=== PATIENT | male | born 1940 | race Caucasian/White ===

== ENCOUNTER 2018-07-04 05:47 | Day surgery (SDC) | payer OTHER ==
[~2018-07-04] VITALS: Ht 175.3 cm; Wt 74.8 kg
[~2018-07-04 05:47] MED LIST: AMLO5TAB88 PO; ASPI-1159 PO; CYAN500T2 PO; FOLI-43 PO; PREG50CA PO; VITA400C73 PO
[2018-07-04] MEDS ORDERED: LACTATED RINGERS 1,000 ML IV SCH (06:00)
[2018-07-04] MEDS ORDERED: SKIN ADHESIVE 0.7 GM EA TOP ONE (06:14)
[2018-07-04] MEDS ORDERED: BUPIVACAINE HCL 0.5% (5MG/ML) 50ML ONE (06:15)
[2018-07-04] MEDS ORDERED: NEOSTIGMINE METHYLSULFATE 1MG/ML 10 ML VIAL ONE (07:11)
[2018-07-04] MEDS ORDERED: PROPOFOL 200MG/20ML VIAL IV ONE (07:11)
[2018-07-04] MEDS ORDERED: GLYCOPYRROLATE 0.2 MG/ML 2ML VIAL ONE (07:11)
[2018-07-04] MEDS ORDERED: FENTANYL CITRATE/PF 50MCG/ML 2ML VIAL ONE ×2 (07:11→07:38)
[2018-07-04] MEDS ORDERED: ROCURONIUM BROMIDE 10MG/ML VIAL 5ML IV ONE (07:11)
[2018-07-04] MEDS ORDERED: MIDAZOLAM HCL 2 MG/2 ML VIAL ONE (07:11)
[2018-07-04] MEDS ORDERED: LIDOCAINE HCL/PF 1% 10 MG/ML 5ML VIAL ONE (07:11)
[2018-07-04] MEDS ORDERED: SUCCINYLCHOLINE CHLORIDE 200MG/10ML IV ONE (07:12)
[2018-07-04] MEDS ORDERED: ONDANSETRON HCL 4MG/2ML INJ ONE (07:12)
[2018-07-04] MEDS ORDERED: SODIUM CHLORIDE 0.9% 10ML VIAL ONE (07:12)
[2018-07-04] MEDS ORDERED: CEFAZOLIN SODIUM 1000MG/VIAL ONE (07:12)
[2018-07-04] MEDS ORDERED: METOCLOPRAMIDE HCL 10MG/2ML VIAL ONE (07:12)
[2018-07-04] MEDS ORDERED: EPHEDRINE SULFATE 50MG/ML VIAL ONE (07:12)
[2018-07-04] MEDS ORDERED: PHENYLEPHRINE HCL 10 MG/ML 1ML (IV VIAL) IV ONE (07:12)
[2018-07-04] MEDS ORDERED: SODIUM CHLORIDE 0.9% 1,000 ML IV ONE (08:38)
[2018-07-04] MEDS ORDERED: ONDANSETRON HCL 4MG/2ML INJ IV PRN (08:45)
[2018-07-04] MEDS ORDERED: MORPHINE SULFATE 4 MG/ML CPJ (NOT FOR IM USE) IV PRN (08:45)
[2018-07-04] MEDS ORDERED: MEPERIDINE HCL/PF 25MG/ML CPJ IV PRN ×2 (08:45)
[2018-07-04] MEDS: HYDROMORPHONE HCL/PF 2MG/ML CPJ IV PRN ×5 (09:32→10:57)
[2018-07-04] MEDS ORDERED: HYDROCODONE/ACETAMINOPHEN 5/325MG TABLET PO PRN (10:15)
[2018-07-04 11:24] VITALS: BP 130/80
== END 2018-07-04 12:30 | disposition home or self-care (01) ==
LOC: OR 05:47
PROVIDERS: ATTEND Surgery
DX: K42.9 Umbilical hernia without obstruction or gangrene (principal); I10 Essential (primary) hypertension
CPT/HCPCS: 49652; C1781; G0168; J0330; J0690; J1170; J2175; J2250; J2370; J2405; J2704; J2710; J2765; J3010; J3490

== ENCOUNTER 2018-10-04 11:33 | Inpatient (IN) | payer OTHER ==
[~2018-10-04] VITALS: Ht 170.2 cm; Wt 71.3 kg
[2018-10-04] MEDS ORDERED: FAMOTIDINE 20MG/2ML VIAL IV STA (12:16)
[2018-10-04] MEDS ORDERED: SODIUM CHLORIDE 0.9% 1,000 ML IV ONE (12:16)
[2018-10-04] MEDS ORDERED: DIPHENHYDRAMINE 50MG/ML VIAL IV ONE (12:30)
[2018-10-04 12:37] LABS: CHLORIDE 104 mEq/L (98-107)
[2018-10-04 12:40] LABS: HEMATOCRIT. 40.9 % (42.0-52.0); HEMOGLOBIN. 13.5 g/dL (14.0-18.0); MEAN CORPUSCULAR HEMOGLOBIN 28.7 pg (28.0-32.0); MEAN CORPUSCULAR VOLUME 86.8 fL (80.0-94.0); MEAN PLATELET VOLUME 8.1 fl (7.4-10.4); PLATELET 225 x1000/uL (130-400); RED BLOOD CELL COUNT 4.71 mill/uL (4.7-6.1); RED CELL DISTRIBUTION WIDTH 14.9 % (11.6-14.6)
[2018-10-04 13:04] LABS: PLATELET ESTIMATE NORMAL
[2018-10-04] MEDS ORDERED: IOHEXOL-300 100 ML BOTTLE ONE (13:57)
[2018-10-04] MEDS ORDERED: CLINDAMYCIN 600 MG in DEXTROSE 5% WATER 50 ML IV ONE (15:15)
[2018-10-04] MEDS ORDERED: HYDROMORPHONE HCL/PF 2MG/ML CPJ IV PRN (16:30)
[2018-10-04] MEDS ORDERED: DOCUSATE SODIUM 100MG CAPSULE PO PRN (16:30)
[2018-10-04] MEDS ORDERED: ONDANSETRON HCL 4MG/2ML INJ IV PRN (16:30)
[2018-10-04] MEDS ORDERED: PIPERACILLIN/TAZ 3.375G PREMIX 50 ML IV SCH (16:30)
[2018-10-04 17:31] LABS: CLARITY URINE CLEAR (CLEAR); COLOR URINE YELLOW (YELLOW); KETONES URINE TRACE (NEGATIVE); LEUKOCYTE ESTERASE URINE NEGATIVE (NEGATIVE); NITRITE URINE NEGATIVE (NEGATIVE); OCCULT BLOOD URINE 1+ (NEGATIVE); PH URINE 7.5 (4.5-8.0); PROTEIN URINE 2+ (NEGATIVE); SPECIFIC GRAVITY URINE 1.079 (1.005-1.030)
[2018-10-04 20:15] VITALS: BP 143/85
[2018-10-04] MEDS: ACETAMINOPHEN 325MG TABLET PO PRN (22:54)
[2018-10-05] VITALS: BP 104/55
[2018-10-05] MEDS: PIPERACILLIN/TAZ 3.375G PREMIX 50 ML IV SCH ×2 (00:48→09:00)
[2018-10-05] MEDS: SODIUM CHLORIDE 0.45% 1,000 ML IV SCH (00:49)
[2018-10-05] MEDS ORDERED: VANCOMYCIN 1 G PREMIX 200 ML IV NR (01:00)
[2018-10-05 04:00] VITALS: BP 126/69
[2018-10-05] MEDS: ACETAMINOPHEN 325MG TABLET PO PRN (05:15)
[2018-10-05 06:19] LABS: HEMATOCRIT. 37.9 % (42.0-52.0); HEMOGLOBIN. 12.5 g/dL (14.0-18.0); MEAN CORPUSCULAR HEMOGLOBIN 28.5 pg (28.0-32.0); MEAN CORPUSCULAR VOLUME 86.7 fL (80.0-94.0); MEAN PLATELET VOLUME 8.6 fl (7.4-10.4); PLATELET 208 x1000/uL (130-400); RED BLOOD CELL COUNT 4.37 mill/uL (4.7-6.1)
[2018-10-05 07:05] LABS: CHLORIDE 107 mEq/L (98-107)
[2018-10-05 07:14] LABS: LDL CHOLESTEROL 44 mg/dL (5-100)
[2018-10-05 07:15] LABS: HDL CHOLESTEROL 28 mg/dL (40-59)
[2018-10-05] MEDS: ENOXAPARIN 40MG/0.4ML SYR SUBCUT SCH (09:01)
[2018-10-05 10:52] LABS: PLATELET ESTIMATE NORMAL
[2018-10-05 12:00] VITALS: BP 147/80
[2018-10-05] MEDS: VANCOMYCIN 750 MG PREMIX 150 ML IV SCH (15:14)
[2018-10-05] MEDS ORDERED: MECLIZINE 25MG TABLET PO PRN (16:15)
[2018-10-05] MEDS ORDERED: CLINDAMYCIN 600 MG in DEXTROSE 5% WATER 50 ML IV SCH (16:15)
[2018-10-05 17:10] LABS: CHLORIDE 105 mEq/L (98-107)
[2018-10-05] MEDS: CEFTRIAXONE 1 G PREMIX 50 ML IV SCH (18:30)
[2018-10-05 20:00] VITALS: BP 133/77
[2018-10-05] MEDS: CLINDAMYCIN 600MG PREMIX 50 ML IV SCH (21:42)
[2018-10-06] VITALS: BP 126/76
[2018-10-06] MEDS: VANCOMYCIN 750 MG PREMIX 150 ML IV SCH ×3 (01:47→21:44)
[2018-10-06] MEDS: SODIUM CHLORIDE 0.45% 1,000 ML IV SCH (01:51)
[2018-10-06 04:00] VITALS: BP 140/75
[2018-10-06] MEDS: CLINDAMYCIN 600MG PREMIX 50 ML IV SCH ×3 (05:32→21:01)
[2018-10-06] MEDS: ACETAMINOPHEN 325MG TABLET PO PRN ×2 (05:39→19:56)
[2018-10-06 06:35] LABS: HEMATOCRIT. 36.7 % (42.0-52.0); HEMOGLOBIN. 12.3 g/dL (14.0-18.0); MEAN CORPUSCULAR HEMOGLOBIN 28.7 pg (28.0-32.0); MEAN CORPUSCULAR VOLUME 85.8 fL (80.0-94.0); MEAN PLATELET VOLUME 8.7 fl (7.4-10.4); PLATELET 217 x1000/uL (130-400); RED BLOOD CELL COUNT 4.27 mill/uL (4.7-6.1); RED CELL DISTRIBUTION WIDTH 15.1 % (11.6-14.6)
[2018-10-06 08:30] VITALS: BP 139/80
[2018-10-06] MEDS: ENOXAPARIN 40MG/0.4ML SYR SUBCUT SCH (08:54)
[2018-10-06 10:39] LABS: PLATELET ESTIMATE NORMAL
[2018-10-06 12:00] VITALS: BP 149/83
[2018-10-06] MEDS ORDERED: DEXTROSE 50% WATER 50ML SYRINGE IV PRN ×2 (13:30)
[2018-10-06] MEDS ORDERED: IPRATROPIUM/ALBUTEROL 0.5-3(2.5)MG/3ML NEB HHN PRN (15:00)
[2018-10-06 16:00] VITALS: BP 156/88
[2018-10-06] MEDS: BLOOD SUGAR DIAGNOSTIC STRIP TEST SCH ×2 (17:32→21:01)
[2018-10-06] MEDS: INSULIN LISPRO 100 UNITS/ML SUBCUT SCH ×2 (17:33→21:00)
[2018-10-06] MEDS: CEFTRIAXONE 1 G PREMIX 50 ML IV SCH (18:19)
[2018-10-06 20:00] VITALS: BP 146/80
[2018-10-07] VITALS (7 sets, daily range): BP systolic 130–159; BP diastolic 76–88
[2018-10-07] MEDS: SODIUM CHLORIDE 0.45% 1,000 ML IV SCH (05:27)
[2018-10-07] MEDS: CLINDAMYCIN 600MG PREMIX 50 ML IV SCH ×3 (05:27→21:26)
[2018-10-07] MEDS: VANCOMYCIN 750 MG PREMIX 150 ML IV SCH (06:06)
[2018-10-07 06:29] LABS: HEMATOCRIT. 35.7 % (42.0-52.0); HEMOGLOBIN. 11.8 g/dL (14.0-18.0); MEAN CORPUSCULAR HEMOGLOBIN 28.4 pg (28.0-32.0); MEAN CORPUSCULAR VOLUME 85.4 fL (80.0-94.0); MEAN PLATELET VOLUME 8.4 fl (7.4-10.4); PLATELET 253 x1000/uL (130-400); RED BLOOD CELL COUNT 4.17 mill/uL (4.7-6.1)
[2018-10-07] MEDS: INSULIN LISPRO 100 UNITS/ML SUBCUT SCH ×4 (06:32→21:00)
[2018-10-07] MEDS: BLOOD SUGAR DIAGNOSTIC STRIP TEST SCH ×4 (06:32→21:01)
[2018-10-07 07:11] LABS: CHLORIDE 106 mEq/L (98-107)
[2018-10-07 07:22] LABS: LDL CHOLESTEROL 50 mg/dL (5-100)
[2018-10-07 07:24] LABS: HDL CHOLESTEROL 10 mg/dL (40-59)
[2018-10-07] MEDS ORDERED: MIDAZOLAM HCL 2 MG/2 ML VIAL ONE (09:48)
[2018-10-07] MEDS ORDERED: TETRACAINE/BENZOCAINE/BUTAMBEN 20 GM SPRAY MM ONE ×2 (09:49→09:53)
[2018-10-07] MEDS ORDERED: LIDOCAINE HCL 2% JELLY 5ML ONE (09:49)
[2018-10-07] MEDS ORDERED: FENTANYL CITRATE/PF 50MCG/ML 5ML VIAL ONE (09:49)
[2018-10-07 09:55] LABS: PLATELET ESTIMATE NORMAL
[2018-10-07] MEDS: ENOXAPARIN 40MG/0.4ML SYR SUBCUT SCH (11:20)
[2018-10-07] MEDS: CEFTRIAXONE 1 G PREMIX 50 ML IV SCH (17:38)
[2018-10-07] MEDS: VANCOMYCIN 1 G PREMIX 200 ML IV SCH (18:15)
[2018-10-08] VITALS: BP 161/92
[2018-10-08 04:00] VITALS: BP 145/83
[2018-10-08] MEDS: CLINDAMYCIN 600MG PREMIX 50 ML IV SCH ×3 (05:19→21:39)
[2018-10-08] MEDS: SODIUM CHLORIDE 0.45% 1,000 ML IV SCH (05:19)
[2018-10-08] MEDS: BLOOD SUGAR DIAGNOSTIC STRIP TEST SCH ×4 (06:25→20:59)
[2018-10-08] MEDS: INSULIN LISPRO 100 UNITS/ML SUBCUT SCH ×4 (06:25→20:59)
[2018-10-08] MEDS: VANCOMYCIN 1 G PREMIX 200 ML IV SCH ×2 (06:42→20:45)
[2018-10-08 08:00] VITALS: BP 170/83
[2018-10-08] MEDS: ENOXAPARIN 40MG/0.4ML SYR SUBCUT SCH (09:00)
[2018-10-08] MEDS: CLONIDINE 0.1MG TABLET PO PRN ×2 (09:01→20:46)
[2018-10-08 12:00] VITALS: BP 144/77
[2018-10-08 16:00] VITALS: BP 157/86
[2018-10-08] MEDS: CEFTRIAXONE 1 G PREMIX 50 ML IV SCH (17:59)
[2018-10-08 20:00] VITALS: BP 163/88
[2018-10-09] VITALS: BP 137/72
[2018-10-09 04:00] VITALS: BP 152/82
[2018-10-09] MEDS: SODIUM CHLORIDE 0.45% 1,000 ML IV SCH (04:19)
[2018-10-09] MEDS: CLINDAMYCIN 600MG PREMIX 50 ML IV SCH ×3 (05:31→21:37)
[2018-10-09 06:23] LABS: HEMATOCRIT. 32.5 % (42.0-52.0); HEMOGLOBIN. 10.8 g/dL (14.0-18.0); MEAN CORPUSCULAR HEMOGLOBIN 28.3 pg (28.0-32.0); MEAN CORPUSCULAR VOLUME 85.2 fL (80.0-94.0); MEAN PLATELET VOLUME 8.4 fl (7.4-10.4); PLATELET 321 x1000/uL (130-400); RED BLOOD CELL COUNT 3.82 mill/uL (4.7-6.1); RED CELL DISTRIBUTION WIDTH 15.1 % (11.6-14.6)
[2018-10-09] MEDS: BLOOD SUGAR DIAGNOSTIC STRIP TEST SCH ×4 (06:35→21:37)
[2018-10-09] MEDS: INSULIN LISPRO 100 UNITS/ML SUBCUT SCH ×4 (06:35→21:00)
[2018-10-09 08:00] VITALS: BP 149/85
[2018-10-09] MEDS: ENOXAPARIN 40MG/0.4ML SYR SUBCUT SCH ×2 (09:00→09:07)
[2018-10-09] MEDS: VANCOMYCIN 1 G PREMIX 200 ML IV SCH (09:07)
[2018-10-09 09:08] LABS: CHLORIDE 107 mEq/L (98-107)
[2018-10-09 12:00] VITALS: BP 146/76
[2018-10-09 16:00] VITALS: BP 165/87
[2018-10-09] MEDS: CEFTRIAXONE 1 G PREMIX 50 ML IV SCH (18:03)
[2018-10-09] MEDS: VANCOMYCIN 750 MG PREMIX 150 ML IV SCH (18:43)
[2018-10-09 20:00] VITALS: BP 163/85
[2018-10-10] VITALS: BP 157/87
[2018-10-10] MEDS ORDERED: CHLORPROMAZINE HCL 10 MG TABLET PO NR (01:00)
[2018-10-10] MEDS: VANCOMYCIN 750 MG PREMIX 150 ML IV SCH ×3 (03:08→20:39)
[2018-10-10 04:00] VITALS: BP 160/83
[2018-10-10] MEDS: CLINDAMYCIN 600MG PREMIX 50 ML IV SCH ×3 (05:46→22:15)
[2018-10-10] MEDS: CLONIDINE 0.1MG TABLET PO PRN (06:09)
[2018-10-10 06:28] LABS: HEMATOCRIT. 30.9 % (42.0-52.0); HEMOGLOBIN. 10.4 g/dL (14.0-18.0); MEAN CORPUSCULAR HEMOGLOBIN 28.8 pg (28.0-32.0); MEAN CORPUSCULAR VOLUME 85.5 fL (80.0-94.0); MEAN PLATELET VOLUME 8.1 fl (7.4-10.4); PLATELET 378 x1000/uL (130-400); RED BLOOD CELL COUNT 3.62 mill/uL (4.7-6.1); RED CELL DISTRIBUTION WIDTH 15.4 % (11.6-14.6)
[2018-10-10 06:46] LABS: CHLORIDE 107 mEq/L (98-107)
[2018-10-10 07:02] LABS: PLATELET ESTIMATE NORMAL
[2018-10-10] MEDS: INSULIN LISPRO 100 UNITS/ML SUBCUT SCH ×4 (07:40→21:00)
[2018-10-10] MEDS: BLOOD SUGAR DIAGNOSTIC STRIP TEST SCH ×4 (07:46→20:01)
[2018-10-10 08:00] VITALS: BP 168/88
[2018-10-10] MEDS: ENOXAPARIN 40MG/0.4ML SYR SUBCUT SCH (09:14)
[2018-10-10] MEDS ORDERED: METOCLOPRAMIDE 10MG/10 ML UDC PO PRN (09:30)
[2018-10-10 12:00] VITALS: BP 169/91
[2018-10-10] MEDS ORDERED: SODIUM BICARBONATE 4% (2.4MEQ) 5ML VIAL IV ONE (12:43)
[2018-10-10] MEDS ORDERED: LIDOCAINE HCL 1% 20ML VIAL (Pyxis) INJ ONE (12:43)
[2018-10-10] MEDS ORDERED: POTASSIUM CHLORIDE 20MEQ TABLET SR PO NR (12:45)
[2018-10-10 16:26] LABS: PLATELET ESTIMATE NORMAL
[2018-10-10] MEDS: CEFTRIAXONE 1 G PREMIX 50 ML IV SCH (18:38)
[2018-10-10 20:00] VITALS: BP 160/88
[2018-10-10] MEDS ORDERED: CHLORPROMAZINE HCL 10 MG TABLET PO PRN (20:30)
[2018-10-11] VITALS: BP 153/85
[2018-10-11] MEDS: VANCOMYCIN 750 MG PREMIX 150 ML IV SCH ×3 (03:00→19:51)
[2018-10-11 04:00] VITALS: BP 158/83
[2018-10-11] MEDS: CLINDAMYCIN 600MG PREMIX 50 ML IV SCH ×3 (06:11→17:15)
[2018-10-11] MEDS: BLOOD SUGAR DIAGNOSTIC STRIP TEST SCH ×4 (06:51→20:15)
[2018-10-11] MEDS: INSULIN LISPRO 100 UNITS/ML SUBCUT SCH ×4 (06:51→21:00)
[2018-10-11 06:56] LABS: HEMATOCRIT. 33.6 % (42.0-52.0); HEMOGLOBIN. 11.3 g/dL (14.0-18.0); MEAN CORPUSCULAR HEMOGLOBIN 28.8 pg (28.0-32.0); MEAN CORPUSCULAR VOLUME 85.6 fL (80.0-94.0); MEAN PLATELET VOLUME 7.9 fl (7.4-10.4); PLATELET 440 x1000/uL (130-400); RED BLOOD CELL COUNT 3.93 mill/uL (4.7-6.1); RED CELL DISTRIBUTION WIDTH 15.3 % (11.6-14.6)
[2018-10-11 07:13] LABS: CHLORIDE 105 mEq/L (98-107)
[2018-10-11 08:00] VITALS: BP 168/92
[2018-10-11] MEDS: ENOXAPARIN 40MG/0.4ML SYR SUBCUT SCH (09:05)
[2018-10-11] MEDS ORDERED: CHLORPROMAZINE HCL 25MG/1ML AMP IM PRN (09:45)
[2018-10-11] MEDS ORDERED: AMLODIPINE 10MG TABLET PO SCH (09:45)
[2018-10-11 10:45] LABS: NUCLEATED RED BLOOD CELLS 1 /100 WBC
[2018-10-11 10:56] LABS: PLATELET ESTIMATE SLIGHTLY INCREASED
[2018-10-11 12:00] VITALS: BP 153/87
[2018-10-11] MEDS: CLONIDINE 0.1MG TABLET PO SCH ×2 (14:48→22:36)
[2018-10-11 16:00] VITALS: BP 149/79
[2018-10-11] MEDS: CEFTRIAXONE 1 G PREMIX 50 ML IV SCH (18:09)
[2018-10-11 20:00] VITALS: BP 142/99
[2018-10-11] MEDS: ACETAMINOPHEN 325MG TABLET PO PRN (22:39)
[2018-10-12] VITALS: BP 152/85
[2018-10-12] MEDS: VANCOMYCIN 750 MG PREMIX 150 ML IV SCH ×3 (03:35→17:19)
[2018-10-12 04:00] VITALS: BP 138/74
[2018-10-12] MEDS: BLOOD SUGAR DIAGNOSTIC STRIP TEST SCH ×3 (06:02→16:35)
[2018-10-12 06:09] LABS: HEMATOCRIT. 31.8 % (42.0-52.0); HEMOGLOBIN. 10.5 g/dL (14.0-18.0); MEAN CORPUSCULAR HEMOGLOBIN 28.2 pg (28.0-32.0); MEAN CORPUSCULAR VOLUME 85.3 fL (80.0-94.0); MEAN PLATELET VOLUME 7.9 fl (7.4-10.4); PLATELET 439 x1000/uL (130-400); RED BLOOD CELL COUNT 3.72 mill/uL (4.7-6.1); RED CELL DISTRIBUTION WIDTH 15.2 % (11.6-14.6)
[2018-10-12] MEDS: INSULIN LISPRO 100 UNITS/ML SUBCUT SCH ×3 (06:27→16:35)
[2018-10-12] MEDS: CLINDAMYCIN 600MG PREMIX 50 ML IV SCH ×2 (06:38→13:41)
[2018-10-12] MEDS: CLONIDINE 0.1MG TABLET PO SCH ×2 (06:39→13:40)
[2018-10-12 07:20] LABS: CHLORIDE 109 mEq/L (98-107)
[2018-10-12 08:00] VITALS: BP 145/83
[2018-10-12] MEDS: ENOXAPARIN 40MG/0.4ML SYR SUBCUT SCH (09:00)
[2018-10-12] MEDS ORDERED: AMLODIPINE 5MG TABLET PO SCH (09:30)
[2018-10-12 12:00] VITALS: BP 146/84
[2018-10-12 12:31] VITALS: BP_SYST 145; BP_SYST 146; BP_DIAS 83; BP_DIAS 84
[2018-10-12 16:00] VITALS: BP 143/79
[2018-10-12] MEDS: CEFTRIAXONE 1 G PREMIX 50 ML IV SCH (16:27)
[2018-10-12 16:45] LABS: PLATELET ESTIMATE INCREASED
== END 2018-10-12 19:00 | disposition home health service (06) | DRG 871 ==
LOC: ER 11:33 → 8WST 16:30 → EDBEDREQ 16:36 → EDBEDREQSVC 16:36 → ENRESERV 16:59
PROVIDERS: ADMIT Internal Medicine Nephrology; ATTEND Internal Medicine Nephrology
PROC: 02H633Z Insertion of Infusion Device into Right Atrium, Percutaneous Approach (ICD-10-PCS; principal; 2018-10-10)
PROC: B2141ZZ Fluoroscopy of Right Heart using Low Osmolar Contrast (ICD-10-PCS; 2018-10-10)
PROC: B54NZZA Ultrasonography of Left Upper Extremity Veins, Guidance (ICD-10-PCS; 2018-10-10)
PROC: B24BZZ4 Ultrasonography of Heart with Aorta, Transesophageal (ICD-10-PCS; 2018-10-10)
DX: A41.02 Sepsis due to Methicillin resistant Staphylococcus aureus (principal); E43 Unspecified severe protein-calorie malnutrition; J85.1 Abscess of lung with pneumonia; L03.211 Cellulitis of face; N39.0 Urinary tract infection, site not specified; I76 Septic arterial embolism; J34.0 Abscess, furuncle and carbuncle of nose; M54.16 Radiculopathy, lumbar region; R65.20 Severe sepsis without septic shock; C61 Malignant neoplasm of prostate; D64.9 Anemia, unspecified; E11.22 Type 2 diabetes mellitus with diabetic chronic kidney disease; E11.43 Type 2 diabetes mellitus with diabetic autonomic (poly)neuropathy; E27.8 Other specified disorders of adrenal gland; E87.6 Hypokalemia; I12.9 Hypertensive chronic kidney disease with stage 1 through stage 4 chronic kidney disease, or unspecified chronic kidney disease; I45.10 Unspecified right bundle-branch block; H25.10 Age-related nuclear cataract, unspecified eye; J06.9 Acute upper respiratory infection, unspecified; N18.1 Chronic kidney disease, stage 1; M19.90 Unspecified osteoarthritis, unspecified site; M71.21 Synovial cyst of popliteal space [Baker], right knee; R29.810 Facial weakness; R91.1 Solitary pulmonary nodule; R26.0 Ataxic gait; R06.6 Hiccough; R04.0 Epistaxis; Z79.899 Other long term (current) drug therapy; Z85.46 Personal history of malignant neoplasm of prostate; Z68.24 Body mass index [BMI] 24.0-24.9, adult; Z88.8 Allergy status to other drugs, medicaments and biological substances; Z92.3 Personal history of irradiation
CPT/HCPCS: 36415; 36569; 36573; 70480; 70487; 70544; 70553; 71045; 71250; 74176; 76705; 80048; 80061; 80202; 82378; 82962; 83036; 84153; 84484; 87077; 93005; 93306; 93880; 96365; 96375; 97110; 97112; 97116; 97162; 97166; 99285; C1725; C1893; J0696; J1170; J1200; J1650; J2250; J2543; J3010; J3370; J3490; J7030; J7050; J7060; Q0161; Q9967; G0103

== ENCOUNTER 2018-10-18 21:18 | Emergency (ER) | payer OTHER ==
[~2018-10-18] VITALS: Ht 175.3 cm; Wt 73.0 kg
[~2018-10-18 21:18] MED LIST changes: -ASPI-1159 PO; -CYAN500T2 PO; +CYAN500T4 PO
[2018-10-18 23:08] LABS: BASOPHILS % 0.5 % (0.0-2.0); CHLORIDE 105 mEq/L (98-107); EOSINOPHILS % 1.9 % (0.0-5.0); HEMATOCRIT. 30.6 % (42.0-52.0); HEMOGLOBIN. 10.3 g/dL (14.0-18.0); LYMPHOCYTES % 9.7 % (20.0-50.0); MEAN CORPUSCULAR HEMOGLOBIN 28.9 pg (28.0-32.0); MEAN CORPUSCULAR VOLUME 85.9 fL (80.0-94.0); MONOCYTES % 9.2 % (2.0-8.0); NEUTROPHILS % 78.7 % (40.0-76.0); PLATELET 482 x1000/uL (130-400); RED BLOOD CELL COUNT 3.57 mill/uL (4.7-6.1); RED CELL DISTRIBUTION WIDTH 15.2 % (11.6-14.6)
[2018-10-19 00:09] VITALS: BP 139/73
== END 2018-10-19 01:05 | disposition home or self-care (01) ==
LOC: ER 21:18
DX: R21 Rash and other nonspecific skin eruption (principal); I10 Essential (primary) hypertension; Z86.14 Personal history of Methicillin resistant Staphylococcus aureus infection; Z88.8 Allergy status to other drugs, medicaments and biological substances; Z79.899 Other long term (current) drug therapy
CPT/HCPCS: 36415; 99283